=== PATIENT | male | born 1945 | race Caucasian/White ===

== ENCOUNTER → 2018-08-21 | Outpatient (CLI) | payer OTHER ==
--- NOTE | 2018-08-21 13:17 | US ---
EXAMINATION TYPE: US abdomen comp/pelvis limited DATE OF EXAM: 08/21/2018 COMPARISON: NONE CLINICAL HISTORY: R10.30 lower abdominal pain, unspecified. Pain, NPO, No surgeries. EXAM MEASUREMENTS: Liver Length: 15.5 cm Gallbladder Wall: 0.2 cm CHD: 0.9 cm Spleen: 9.9 cm Right Kidney: 9.7 x 4.8 x 5.9 cm Left Kidney: 10.3 x 5.1 x 5.5 cm Limited exam due to overlying bowel gas Pancreas: Obscured by bowel gas Liver: Increased attenuation and appears heterogenous Gallbladder: wnl CBD: Obscured by overlying bowel gas CHD: appears slightly dilated for patient age Spleen: wnl Right Kidney: wnl Left Kidney: wnl Upper IVC: Obscured by overlying bowel gas Abd Aorta: limited visualization, portions obscured by overlying bowel gas Bladder: distended, wnl Bilateral Jets Seen Area of pain scanned in left adnexa/groin region. Possible hernia. During valsalva, movement was se en. Suboptimal study as detailed above due to overlying bowel gas. IMPRESSION: 1. There is suspected fat-containing left inguinal hernia with suspicious tissue identified at area o f clinical concern left groin during scanning. This can be confirmed with pelvic CT if desired. Video clips cannot be saved at this institution to best evaluate. 2. Heterogeneous hyperechoic appearance of liver likely on basis of diffuse fatty infiltration, under lying felt cellular disease is not excluded. Correlate with liver lab values and clinically. 3. Mild extrahepatic biliary dilatation without intrahepatic biliary dilatation. Need to further inve stigate by ERCP or MRCP should be based on clinical and lab correlation.
== END ==
LOC: RADUSWWP 12:10
DX: K76.0 Fatty (change of) liver, not elsewhere classified (principal); K83.8 Other specified diseases of biliary tract
CPT/HCPCS: 76700; 76857

== ENCOUNTER → 2018-10-12 | Outpatient (CLI) | payer OTHER ==
--- NOTE | 2018-10-12 17:35 | MR ---
EXAMINATION TYPE: MR MRCP DATE OF EXAM: 10/12/2018 COMPARISON: Complete abdominal ultrasound August 21, 2018 HISTORY: Abnormal US of liver Standard multiplanar, multisequence MRI departmental protocol Multiplanar, multisequence images of the abdomen focusing on biliary system were acquired. Thin and t hick slice MRCP imaging is performed on MRI scanner. FINDINGS: LIVER/GB/PANCREAS/BILIARY SYSTEM: Liver is normal in size. There is diffuse signal dropout system wit h mild diffuse fatty infiltration. No worrisome solid or cystic intrahepatic masses are present. No intraluminal gallstones in the gallbladder are seen. No wall thickening is noted. Pancreas is normal in size. There are thin-walled cystic lesions along inferior aspect of the mid to distal body measuring up to 9 mm long axis coronal image 15. There is tubular shaped subcentimeter le quan proximal body posteriorly that may have communication with main pancreatic duct. Main pancreatic duct is nondilated. There is no suspicious intrahepatic biliary dilatation. Common hepatic duct measures up to 9 mm near josé antonio hepatis. There is gradual tapering towards ampulla without obstructing mass or calculus clearly seen. OTHER: Lung bases are clear. Cardiomegaly is noted. Subcentimeter splenule anterior to spleen is seen . No suspicious adrenal masses are noted. No hydronephrosis is present in either kidney. No suspiciou s bowel dilatation is seen. Scattered colonic diverticula are present. There are prominent but subcen timeter lymph nodes throughout the left-sided mesentery. No concerning abdominal fluid collection is identified. Osseous structures are intact. IMPRESSION: 1. Confirmation of mild extra hepatic biliary dilatation without intrahepatic biliary dilatation. Con firmation of mild diffuse fatty infiltration of liver. 2. Thin-walled subcentimeter cystic lesions throughout the pancreas, 3 distinct lesions are present. Differential includes pancreatic pseudocyst but cystic neoplasm cannot be excluded. At minimum MRI/MR CP imaging follow-up or monitoring in 6-12 months time is advised.
== END | disposition home or self-care (01) ==
LOC: RADMRIMAIN 14:54
PROVIDERS: ATTEND Internal Medicine Gastroenterology
DX: K76.0 Fatty (change of) liver, not elsewhere classified (principal); K86.2 Cyst of pancreas
CPT/HCPCS: 74181

== ENCOUNTER → 2020-02-07 | Outpatient (CLI) | payer OTHER ==
--- NOTE | 2020-02-07 14:49 | MR ---
EXAMINATION TYPE: MR cervical spine wo con DATE OF EXAM: 02/07/2020 COMPARISON: Cervical spine x-rays of 01/05/2014 HISTORY: Neck pain, BUE numbness x 3 mos TECHNIQUE: Multiplanar, multisequence images of the cervical spine were acquired. FINDINGS: There is multilevel degenerative disc disease of the cervical spine with multilevel disc de siccation. The vertebral body heights and alignment of the cervical spine are maintained. Bone marrow slightly heterogenous. There is mild hyperintensity that is amorphous measuring approximately 9 mm i n the cervical spine marked on sagittal T2 axial nonfat image 9 at the C6-C7 intervertebral disc spac e and upper aspect of the C7 vertebral body. There is no cord expansion in the cord appears slightly atrophic. C2-C3: There is a small central posterior disc osteophyte complex and minimal uncovertebral hypertrop hy as well as right-sided facet arthropathy creating minimal bilateral neural foraminal narrowing wit hout spinal canal stenosis. C3-C4: There is a central disc osteophyte complex, uncovertebral hypertrophy and facet arthropathy cr eating moderate left and [id number] right neural foraminal narrowing. No significant spinal can al stenosis. C4-C5: There is uncovertebral hypertrophy and facet arthropathy creating mild bilateral neural forami nal narrowing. A broad-based disc bulge slightly narrows the ventral subarachnoid space however no si gnificant spinal canal stenosis is seen. C5-C6: There is a central disc herniation and facet arthropathy with uncovertebral hypertrophy creati ng mild spinal canal stenosis and mild bilateral neural foraminal narrowing. C6-C7: There is a left paracentral disc herniation, uncovertebral hypertrophy and facet arthropathy c ontributing to moderate spinal canal stenosis, moderate to severe left neural foraminal narrowing and mild right neural foraminal narrowing. C7-T1: Minimal uncovertebral hypertrophy creating minimal right neural foraminal narrowing. Spinal ca nal and left neural foramen are patent. Possible cystic lesion of the left lobe near the thyroid seen on axial T2-weighted images only. CT or ultrasound of the neck are recommended for further evaluation. IMPRESSION: 1. Left paracentral disc herniation at C6-C7 contributing to moderate spinal canal stenosis, moderate to severe left neural foraminal narrowing and mild right neural foraminal narrowing. There is also a bnormal signal of the spinal cord at C6-C7. Given the patient's chronicity of symptoms for 3 months t his likely relates to myelomalacia. There is also no cord expansion to indicate acute cord edema. 2. Central disc herniation at C5-C6 with degenerative disc disease crating mild spinal canal stenosis . 3. Moderate degenerative disc disease of the cervical spine with variable degrees of neural foraminal narrowing detailed age level above. 4. Possible cystic lesion in the left thyroid gland. Directed ultrasound or CT neck are recommended f or further evaluation.
== END | disposition home or self-care (01) ==
LOC: RADMRIMAIN 10:06
DX: M50.222 Other cervical disc displacement at C5-C6 level (principal); M48.02 Spinal stenosis, cervical region; M50.322 Other cervical disc degeneration at C5-C6 level; Z88.8 Allergy status to other drugs, medicaments and biological substances
CPT/HCPCS: 72141

== ENCOUNTER → 2020-02-16 | Outpatient (CLI) | payer OTHER ==
--- NOTE | 2020-02-16 11:48 | US ---
EXAMINATION TYPE: US thyroid st tissue head/neck DATE OF EXAM: 02/16/2020 COMPARISON: CLINICAL HISTORY: R93.89 Abnormal findings on diagnostic imaging of. MRI showed cystic lesion on thyr oid GLAND SIZE: Right Lobe: 3.1 x 1.4 x 1.4 cm Overall Parenchyma: homogenous Left Lobe: 4.8 x 4.3 x 3.2 cm Overall Parenchyma: homogeneous Isthmus Thickness: 0.5 cm NODULES RIGHT: # of nodules measured on right: 1. 0.5 X 0.4 x 0.4 cm hypoechoic nodule at the lower pole with well-defined margins. This nodule i s wide as tall and shows no intranodular vascularity. Prior size: No prior LEFT: # of nodules measured on left: 1 1. 3.3 X 3.6 x 2.4 cm cystic nodule at the mid pole with well-defined margins. This nodule is wide r than tall and shows no intranodular vascularity. Prior size: no prior ISTHMUS: # of nodules measured in the isthmus: 1 1. 1.1 X 0.8 x 0.5 cm complex nodule at the right lateral pole with well-defined margins. This nod ule is wider than tall and shows no intranodular vascularity. Prior size: no prior Bilateral neck scanned, no evidence of lymphadenopathy. IMPRESSION: Nonspecific thyroid nodularity. The need to biopsy should be made on a clinical basis.
== END | disposition home or self-care (01) ==
LOC: RADUSWWP 10:44
DX: E04.1 Nontoxic single thyroid nodule (principal)
CPT/HCPCS: 76536

== ENCOUNTER → 2020-03-20 | Outpatient (CLI) | payer OTHER ==
--- NOTE | 2020-03-20 12:40 | MR ---
MRCP HISTORY: Disease of pancreas, K 86.89 Multiplanar multisequence imaging obtained through the abdomen, three-dimensional [id number] emerson nstructions performed through the biliary system. Correlation to prior MRCP 10/12/2018 Signal drop on out of phase imaging within the liver is consistent with hepatic steatosis. The liver shows no mass. Gallbladder is normal. The appearance of the pancreas is stable. No evident biliary dilation, no filling defect to suggest choledocholithiasis.. Lung bases are clear. No retroperitoneal adenopathy. Aorta shows normal caliber. Adrenal glands and kidneys are stable. Sp raymond is unremarkable. No bowel obstruction. Diverticular change again noted within the colon. Mild spinal curvature noted in the visualized spine . IMPRESSION: Stable exam.
== END | disposition home or self-care (01) ==
LOC: RADMRIMAIN 07:54
PROVIDERS: ATTEND Internal Medicine
DX: K86.89 Other specified diseases of pancreas (principal)
CPT/HCPCS: 74181

== ENCOUNTER → 2020-05-11 | Outpatient (CLI) | payer OTHER | END | disposition home or self-care (01) | LOC: LABWHC1 13:47 | PROVIDERS: ATTEND Internal Medicine Endocrinology, Diabetes & Metabolism | DX: E04.2 Nontoxic multinodular goiter (principal) | CPT/HCPCS: 36415; 84439; 84443 ==

== ENCOUNTER → 2020-11-20 | Outpatient (CLI) | payer OTHER ==
--- NOTE | 2020-11-20 16:29 | US ---
EXAMINATION TYPE: US thyroid st tissue head/neck DATE OF EXAM: 11/20/2020 COMPARISON: 02/16/2020 CLINICAL HISTORY: 75-year-old male E04.2 Multinodular goiter. Follow-up exam. TECHNIQUE: Multiple sonographic images of the thyroid gland are obtained. FINDINGS: GLAND SIZE: Right Lobe: 3.3 x 1.3 x 1.5 cm Overall Parenchyma: heterogenous Left Lobe: 4.8 x 2.5 x 3.7 cm Overall Parenchyma: heterogeneous Isthmus Thickness: 0.9 cm NODULES RIGHT: # of nodules measured on right: 1 1. 0.4 X 0.6 x 0.7 cm solid or almost completely solid, hypoechoic nodule, which is wider than tall , with smooth margins, without echogenic foci. Prior size: 0.5 x 0.4 x 0.4 cm LEFT: # of nodules measured on left: 1 1. 2.7 X 2.9 x 2.6 cm primarily cystic nodule in the lower pole, which is wider than tall, with smo oth margins, with echogenic foci. Prior size: 3.3 x 3.6 x 2.4 cm ISTHMUS: # of nodules measured in the isthmus: 1 1. 1.2 X 0.9 x 0.7 cm cystic or almost completely cystic, towards the thyroid isthmus which is wider than tall, with smooth margins, without echogenic foci. Prior size: 1.1 x 0.8 x 0.5 cm Bilateral neck scanned, no evidence of lymphadenopathy. IMPRESSION: 1. A small 7 mm solid nodule on the right is slightly larger compared to 5 mm previously. 2. Mostly cystic nodules measuring 2.9 and 1.2 cm on the left either stable or smaller (versus 3.6 an d 1.1 cm, previously respectively).
== END | disposition home or self-care (01) ==
LOC: RADUSWWP 13:59
PROVIDERS: ATTEND Internal Medicine Endocrinology, Diabetes & Metabolism
DX: E04.2 Nontoxic multinodular goiter (principal)
CPT/HCPCS: 76536

== ENCOUNTER → 2020-12-04 | Outpatient (CLI) | payer OTHER ==
--- NOTE | 2020-12-04 17:38 | MR ---
EXAMINATION TYPE: MR cervical spine wo con DATE OF EXAM: 12/04/2020 COMPARISON: MR cervical spine 02/07/2020 HISTORY: M 48.062, and neck pain. TECHNIQUE: Multiplanar, multisequence images of the cervical spine were acquired. C2-C3: No evidence for degenerative disc disease. No disc bulge/herniation or protrusion. No Canal stenosis. Foramina are patent bilaterally. C3-C4: There is some left-sided foraminal encroachment due to uncovertebral joint hypertrophy and fac et arthropathy, no evident disc herniation or significant spinal stenosis. C4-C5: Posterior broad-based disc bulge causes minimal anterior mass effect on the thecal sac. Some r ight-sided foraminal encroachment is present due to uncovertebral joint hypertrophy facet arthropathy . No significant spinal stenosis. C5-C6: Posterior extension endplate disc complex results in anterior mass effect on the thecal sac, m oderate central canal stenosis, there is bilateral foraminal encroachment due to uncovertebral joint hypertrophy, facet arthropathy. C6-C7: Left-sided foraminal encroachment is present due to uncovertebral joint hypertrophy and facet arthropathy, circumferential posterior extension endplate disc complex causes anterior mass effect on the thecal sac, mild to moderate central stenosis. C7-T1: No evidence for degenerative disc disease. No disc bulge/herniation or protrusion. No Canal stenosis. Foramina are patent bilaterally. Cervical segments are intact. There is stable alignment, there may be spinal curvature. Cervical sp inal cord is of normal signal. Craniovertebral junction relationships are within normal limits. The re is loss of disc height signal greatest at C5-6, C6-7 with associated spondylosis, endplate discoge giancarlo marrow signal change. Minimal interstitial is grade 1 C7-T1. IMPRESSION: Degenerative disc disease with spinal stenosis, facet arthropathy, foraminal encroachment as describe eric
== END ==
LOC: RADMRIMAIN 14:29
PROVIDERS: ATTEND Neurological Surgery
DX: M48.02 Spinal stenosis, cervical region (principal); M47.812 Spondylosis without myelopathy or radiculopathy, cervical region; M50.221 Other cervical disc displacement at C4-C5 level
CPT/HCPCS: 72141

== ENCOUNTER → 2020-12-11 | Outpatient (CLI) | payer OTHER | END | disposition home or self-care (01) | LOC: LABPAT 12:14 | PROVIDERS: ATTEND Orthopaedic Surgery | DX: Z01.812 Encounter for preprocedural laboratory examination (principal) | CPT/HCPCS: 87070 ==

== ENCOUNTER 2021-02-09 13:11 | Emergency (ER) | payer OTHER ==
[2021-02-09 13:17] VITALS: RESP 18
[2021-02-09 14:05] LABS: Basophils # (A) 0.1 k/uL (0-0.2); Basophils % (A) 1 %; Eosinophils # (A) 0.3 k/uL (0-0.7); Eosinophils % (A) 4 %; HCT 45.5 % (39.0-53.0); HGB 15.2 gm/dL (13.0-17.5); Lymphocytes # (A) 1.7 k/uL (1.0-4.8); Lymphocytes % (A) 22 %; MCH 31.1 pg (25.0-35.0); MCHC 33.4 g/dL (31.0-37.0); MCV 93.2 fL (80.0-100.0); Mean Platelet Volume 7.4; Monocytes # (A) 0.5 k/uL (0-1.0); Monocytes % (A) 6 %; Neutrophils % (A) 65 %; Platelet Count 245 k/uL (150-450); RBC 4.88 m/uL (4.30-5.90); RDW 13.5 % (11.5-15.5); WBC 7.7 k/uL (3.8-10.6)
[2021-02-09 14:13] LABS: Albumin 4.4 g/dL (3.5-5.0); Calcium 9.4 mg/dL (8.4-10.2); Magnesium 1.7 mg/dL (1.6-2.3); Potassium 5.6 mmol/L (3.5-5.1); Total Bilirubin 0.7 mg/dL (0.2-1.3); Total Protein 7.1 g/dL (6.3-8.2)
[2021-02-09 14:19] LABS: D-Dimer 0.5 mg/L FEU (<0.60); INR 0.9 (<1.2); Partial Thromboplastin Time 24.5 sec (22.0-30.0); Prothrombin Time 10.1 sec (9.0-12.0)
--- NOTE | 2021-02-09 14:26 | XR ---
EXAMINATION TYPE: XR chest 2V DATE OF EXAM: 02/09/2021 COMPARISON: 09/07/2014 HISTORY: Chest pain TECHNIQUE: FINDINGS: There is no heart failure. There is slight blunting left costophrenic angle. There are no h ilar masses. There is no evidence of mediastinal adenopathy. Heart size is fairly normal. Bony thorax is intact. IMPRESSION: There is some mild pleural reaction at the left lung base that is new compared to old exa m. No heart failure seen.
--- NOTE | 2021-02-09 14:39 | ED ---
General Adult HPI - General Chief complaint: Upper Respiratory Infection Stated complaint: Chest pain Time Seen by Provider: 02/09/21 13:19 Source: patient, RN notes reviewed, old records reviewed Mode of arrival: ambulatory - History of Present Illness Initial comments: 75-year-old male presenting with 3 days of left-sided chest pain worse with cough. Patient states he's had a mild productive cough with clear sputum. No fever. No central radiating chest pain. Patient denies lower extremity pain or swelling. He denies known contact with coronavirus. Pain is mild. Does not travel. - Related Data Home Medications Medication Instructions Recorded Confirmed Acetaminophen-Codeine 300-30mg 1 tab PO BID PRN 02/09/21 02/09/21 [Tylenol w/codeine #3] Aspirin EC [Ecotrin Low Dose] 81 mg PO DAILY 02/09/21 02/09/21 Atorvastatin [Lipitor] 80 mg PO HS 02/09/21 02/09/21 Citalopram Hydrobromide [CeleXA] 40 mg PO DAILY 02/09/21 02/09/21 Donepezil HCl [Aricept] 5 mg PO DAILY 02/09/21 02/09/21 Empagliflozin [Jardiance] 10 mg PO DAILY 02/09/21 02/09/21 Gabapentin [Neurontin] 300 mg PO TID 02/09/21 02/09/21 Insulin Aspart [NovoLOG Flexpen] 10 - 15 units SQ AC-SUPPER 02/09/21 02/09/21 Insulin Glargine [Lantus] 60 unit SQ BID 02/09/21 02/09/21 Losartan Potassium 50 mg PO DAILY 02/09/21 02/09/21 Tamsulosin HCl [Flomax] 0.4 mg PO DAILY 02/09/21 02/09/21 amLODIPine [Norvasc] 5 mg PO DAILY 02/09/21 02/09/21 glipiZIDE [Glucotrol] 10 mg PO AC-SUPPER 02/09/21 02/09/21 glipiZIDE [Glucotrol] 15 mg PO AC-BID@0900,2100 02/09/21 02/09/21 Allergies Allergy/AdvReac Type Severity Reaction Status Date / Time prochlorperazine AdvReac ANXIETY Verified 02/09/21 14:13 [From Compazine] Review of Systems ROS Statement: Those systems with pertinent positive or pertinent negative responses have been documented in the HPI. ROS Other: All systems not noted in ROS Statement are negative. Past Medical History Past Medical History: Diabetes Mellitus History of Any Multi-Drug Resistant Organisms: None Reported Past Surgical History: No Surgical Hx Reported Past Psychological History: No Psychological Hx Reported Smoking Status: Never smoker Past Alcohol Use History: None Reported Past Drug Use History: None Reported General Exam General appearance: alert, in no apparent distress Head exam: Present: atraumatic, normocephalic Eye exam: Present: normal appearance, PERRL ENT exam: Present: normal exam, mucous membranes dry Neck exam: Present: normal inspection Respiratory exam: Present: normal lung sounds bilaterally. Absent: respiratory distress, wheezes, decreased breath sounds Cardiovascular Exam: Present: regular rate, normal rhythm GI/Abdominal exam: Present: soft. Absent: distended, tenderness, guarding Extremities exam: Present: normal inspection, normal capillary refill. Absent: pedal edema, calf tenderness Neurological exam: Present: alert, oriented X3, CN II-XII intact. Absent: motor sensory deficit Psychiatric exam: Present: normal affect, normal mood Skin exam: Present: warm, dry, intact. Absent: cyanosis, diaphoretic Course Vital Signs 02/09/21 13:12 Temperature 97.4 F L Pulse Rate 76 Respiratory 18 Rate Blood Pressure 147/89 O2 Sat by Pulse 97 Oximetry EKG Findings - EKG Comments: EKG Findings:: EKG: Normal sinus rhythm, rate 68, NH interval 154, QRS duration 76, QTC [address] segment elevation Medical Decision Making - Medical Decision Making 75-year-old male with left-sided lateral chest pain worse with cough. Patient's lungs are clear on exam. He is afebrile stable vitals. He has no typical chest pain. His EKG is sinus without ST segment elevation. He has normal CBC, CMP showing a mild hyperkalemia and mild hyperglycemia. Troponin negative, d-dimer negative. X-ray negative for pneumothorax, showing a left pleural reaction. No other acute findings. Patient will monitor for worsening symptoms, fever, dyspnea return parameters were discussed, will follow with his primary care physician. - Lab Data Result diagrams: 02/09/21 13:53 02/09/21 13:53 Lab Results 02/09/21 02/09/21 02/09/21 Range/Units 13:53 13:53 13:53 WBC 7.7 (3.8-10.6) k/uL RBC 4.88 (4.30-5.90) m/uL Hgb 15.2 (13.0-17.5) gm/dL Hct 45.5 (39.0-53.0) % MCV 93.2 (80.0-100.0) fL MCH 31.1 (25.0-35.0) pg MCHC 33.4 (31.0-37.0) g/dL RDW 13.5 (11.5-15.5) % Plt Count 245 (150-450) k/uL MPV 7.4 Neutrophils % 65 % Lymphocytes % 22 % Monocytes % 6 % Eosinophils % 4 % Basophils % 1 % Neutrophils # 5.0 (1.3-7.7) k/uL Lymphocytes # 1.7 (1.0-4.8) k/uL Monocytes # 0.5 (0-1.0) k/uL Eosinophils # 0.3 (0-0.7) k/uL Basophils # 0.1 (0-0.2) k/uL PT 10.1 (9.0-12.0) sec INR 0.9 (<1.2) APTT 24.5 (22.0-30.0) sec D-Dimer 0.50 (<0.60) mg/L FEU Sodium 136 L (137-145) mmol/L Potassium 5.6 H (3.5-5.1) mmol/L Chloride 103 (98-107) mmol/L Carbon Dioxide 23 (22-30) mmol/L Anion Gap 10 mmol/L BUN 25 H (9-20) mg/dL Creatinine 1.23 (0.66-1.25) mg/dL Est GFR (CKD-EPI)AfAm 67 (>60 ml/min/1.73 sqM) Est GFR (CKD-EPI)NonAf 58 (>60 ml/min/1.73 sqM) Glucose 247 H (74-99) mg/dL Calcium 9.4 (8.4-10.2) mg/dL Magnesium 1.7 (1.6-2.3) mg/dL Total Bilirubin 0.7 (0.2-1.3) mg/dL AST 29 (17-59) U/L ALT 33 (4-49) U/L Alkaline Phosphatase 96 (38-126) U/L Troponin I (0.000-0.034) ng/mL Total Protein 7.1 (6.3-8.2) g/dL Albumin 4.4 (3.5-5.0) g/dL Influenza Type A (PCR) (Not Detectd) Influenza Type B (PCR) (Not Detectd) RSV (PCR) (Not Detectd) SARS-CoV-2 (PCR) (Not Detectd) 02/09/21 02/09/21 Range/Units 13:53 13:53 WBC (3.8-10.6) k/uL RBC (4.30-5.90) m/uL Hgb (13.0-17.5) gm/dL Hct (39.0-53.0) % MCV (80.0-100.0) fL MCH (25.0-35.0) pg MCHC (31.0-37.0) g/dL RDW (11.5-15.5) % Plt Count (150-450) k/uL MPV Neutrophils % % Lymphocytes % % Monocytes % % Eosinophils % % Basophils % % Neutrophils # (1.3-7.7) k/uL Lymphocytes # (1.0-4.8) k/uL Monocytes # (0-1.0) k/uL Eosinophils # (0-0.7) k/uL Basophils # (0-0.2) k/uL PT (9.0-12.0) sec INR (<1.2) APTT (22.0-30.0) sec D-Dimer (<0.60) mg/L FEU Sodium (137-145) mmol/L Potassium (3.5-5.1) mmol/L Chloride (98-107) mmol/L Carbon Dioxide (22-30) mmol/L Anion Gap mmol/L BUN (9-20) mg/dL Creatinine (0.66-1.25) mg/dL Est GFR (CKD-EPI)AfAm (>60 ml/min/1.73 sqM) Est GFR (CKD-EPI)NonAf (>60 ml/min/1.73 sqM) Glucose (74-99) mg/dL Calcium (8.4-10.2) mg/dL Magnesium (1.6-2.3) mg/dL Total Bilirubin (0.2-1.3) mg/dL AST (17-59) U/L ALT (4-49) U/L Alkaline Phosphatase (38-126) U/L Troponin I <0.012 (0.000-0.034) ng/mL Total Protein (6.3-8.2) g/dL Albumin (3.5-5.0) g/dL Influenza Type A (PCR) Not Detected (Not Detectd) Influenza Type B (PCR) Not Detected (Not Detectd) RSV (PCR) Not Detected (Not Detectd) SARS-CoV-2 (PCR) Not Detected (Not Detectd) Disposition Clinical Impression: Atypical chest pain Disposition: HOME SELF-CARE Condition: Good Instructions (If sedation given, give patient instructions): Upper Respiratory Infection (ED), Chest Pain (ED) Is patient prescribed a controlled substance at d/c from ED?: No Referrals: [facility],Clinic [Primary Care Provider] - 1-2 days Time of Disposition: 15:20
[2021-02-09] MEDS ORDERED: SODIUM CHLORIDE 0.9% 500 ML 500 ML IV ONE (14:52)
[2021-02-09 15:37] VITALS: BP 148/83; PULSE 66; TEMP 98.1
== END 2021-02-09 15:35 | disposition home or self-care (01) ==
LOC: EC 13:11
DX: R07.89 Other chest pain (principal); E11.9 Type 2 diabetes mellitus without complications; Z79.4 Long term (current) use of insulin; Z79.82 Long term (current) use of aspirin
CPT/HCPCS: 36415; 71046; 80053; 83735; 84484; 85025; 85379; 85610; 85730; 87636; 93005; 99285

== ENCOUNTER → 2022-02-15 | Outpatient (CLI) | payer OTHER ==
--- NOTE | 2022-02-15 12:56 | MR ---
EXAMINATION TYPE: MR cervical spine wo con DATE OF EXAM: 02/15/2022 12:48 PM COMPARISON: 12/04/2020 HISTORY: Osseous and sublux stenosis of cervical region Multiplanar MultiSpin echo imaging of the cervical spine was performed. Comparison: none C2-C3: No evidence for degenerative disc disease. No disc bulge/herniation or protrusion. No Canal stenosis. Foramina are patent bilaterally. C3-C4: No evidence for degenerative disc disease. No disc bulge/herniation or protrusion. No Canal stenosis. Foramina are patent bilaterally. C4-C5: No evidence for degenerative disc disease. No disc bulge/herniation or protrusion. No Canal stenosis. Foramina are patent bilaterally. C5-C6: Moderate disc desiccation. Circumferential disc bulge greatest posteriorly where disc herniati on is difficult to exclude. Effacement ventral thecal sac with ventral cord contact moderate central stenosis. No evidence for myelopathy. Degenerative change of the cervical apophyseal joints resulting in bilateral foraminal encroachment. Large ventral spur C6-C7: Moderate disc desiccation. Circumferential disc bulge greatest posteriorly where disc herniati on is difficult to exclude. Effacement ventral thecal sac with ventral cord contact moderate central stenosis. No evidence for myelopathy. Degenerative change of the cervical apophyseal joints resulting in bilateral foraminal encroachment. Large ventral spur C7-T1: No evidence for degenerative disc disease. No disc bulge/herniation or protrusion. No Canal stenosis. Foramina are patent bilaterally. Cervical segments are intact. There is normal alignment. Cervical spinal cord is of normal signal. Craniovertebral junction relationships are within normal limits. IMPRESSION: 1. Generative disc disease with central stenosis at C5-6 and C6-7 as well as bilateral neural foramin al encroachment.
== END | disposition home or self-care (01) ==
LOC: RADMRIMAIN 11:50
PROVIDERS: ATTEND Physician Assistant
DX: M99.61 Osseous and subluxation stenosis of intervertebral foramina of cervical region (principal); M50.322 Other cervical disc degeneration at C5-C6 level; M50.323 Other cervical disc degeneration at C6-C7 level
CPT/HCPCS: 72141

== ENCOUNTER 2022-09-08 15:33 | Emergency (ER) | payer OTHER ==
[2022-09-08 15:58] VITALS: TEMP 98
[2022-09-08] MEDS ORDERED: predniSONE 20 MG TAB PO STA (19:42)
[2022-09-08] MEDS ORDERED: KETOROLAC 15 MG/ML 1 ML VIAL IM STA (19:42)
--- NOTE | 2022-09-08 19:44 | ED ---
General Adult HPI - General Chief complaint: Recheck/Abnormal Lab/Rx Stated complaint: Right Sided Numbness,Poss Stroke Time Seen by Provider: 09/08/22 19:21 Source: patient Mode of arrival: ambulatory Limitations: no limitations - History of Present Illness Initial comments: This is a 77-year-old male with a past medical history including hypertension p resents emergency department for right leg pain. The patient stated that he has had this right leg pain for 4 months and stated that he has been seeing a chiropractor on and off for the last 4 months for this. The patient stated he did not have any acute pain or tenderness but stated that it is a tingling-like sensation down his right leg. The patient stated that he has not seen a physician for this and for months but [facility] The patient denied any pain in his back or any numbness or tingling currently. The patient has not tried any other medications other than Tylenol. The patient denied any urinary or fecal incontinence. The patient was resting in bed comfortably and was in bleeding in the emergency department without any acute assistance. - Related Data Home Medications Medication Instructions Recorded Confirmed Acetaminophen-Codeine 300-30mg 1 tab PO BID PRN 02/09/21 02/09/21 [Tylenol w/codeine #3] Aspirin EC [Ecotrin Low Dose] 81 mg PO DAILY 02/09/21 02/09/21 Atorvastatin [Lipitor] 80 mg PO HS 02/09/21 02/09/21 Citalopram Hydrobromide [CeleXA] 40 mg PO DAILY 02/09/21 02/09/21 Donepezil HCl [Aricept] 5 mg PO DAILY 02/09/21 02/09/21 Empagliflozin [Jardiance] 10 mg PO DAILY 02/09/21 02/09/21 Gabapentin [Neurontin] 300 mg PO TID 02/09/21 02/09/21 Insulin Aspart [NovoLOG Flexpen] 10 - 15 units SQ AC-SUPPER 02/09/21 02/09/21 Insulin Glargine [Lantus] 60 unit SQ BID 02/09/21 02/09/21 Losartan Potassium 50 mg PO DAILY 02/09/21 02/09/21 Tamsulosin HCl [Flomax] 0.4 mg PO DAILY 02/09/21 02/09/21 amLODIPine [Norvasc] 5 mg PO DAILY 02/09/21 02/09/21 glipiZIDE [Glucotrol] 10 mg PO AC-SUPPER 02/09/21 02/09/21 glipiZIDE [Glucotrol] 15 mg PO AC-BID@0900,2100 02/09/21 02/09/21 Previous Rx's Medication Instructions Recorded predniSONE [Deltasone] 40 mg PO DAILY #8 tab 09/08/22 Allergies Allergy/AdvReac Type Severity Reaction Status Date / Time prochlorperazine AdvReac ANXIETY Verified 09/08/22 15:58 [From Compazine] Review of Systems ROS Statement: Those systems with pertinent positive or pertinent negative responses have been documented in the HPI. ROS Other: All systems not noted in ROS Statement are negative. Past Medical History Past Medical History: Diabetes Mellitus, Hypertension Additional Past Medical History / Comment(s): diverticulitis History of Any Multi-Drug Resistant Organisms: None Reported Past Surgical History: Hernia Repair Past Psychological History: No Psychological Hx Reported Smoking Status: Former smoker Past Alcohol Use History: None Reported Past Drug Use History: None Reported General Exam Limitations: no limitations General appearance: alert, in no apparent distress Head exam: Present: atraumatic, normocephalic Eye exam: Present: normal appearance, PERRL Pupils: Present: normal accommodation ENT exam: Present: normal exam, normal oropharynx, mucous membranes moist Neck exam: Present: normal inspection, full ROM Respiratory exam: Present: normal lung sounds bilaterally Cardiovascular Exam: Present: regular rate, normal rhythm, normal heart sounds GI/Abdominal exam: Present: soft, normal bowel sounds Rectal exam: Present: deferred Extremities exam: Present: normal inspection, full ROM Back exam: Present: normal inspection, full ROM Neurological exam: Present: alert, oriented X3, CN II-XII intact Psychiatric exam: Present: normal affect, normal mood Skin exam: Present: warm, dry Course Vital Signs 09/08/22 09/08/22 15:56 20:04 Temperature 98 F Pulse Rate 69 77 Respiratory 20 18 Rate Blood Pressure 133/71 141/83 O2 Sat by Pulse 98 99 Oximetry Medical Decision Making - Medical Decision Making The patient was seen and evaluated emergency department. Physical exam, the patient was resting in bed without any acute distress. On evaluation, the patient did not have any acute tenderness noted. The patient stated "it feels deeper in my leg" and there was no imaging that was needed at this time. The patient was given a dose of Toradol as well as a dose of prednisone in the emergency department. The patient was also given a prescription for the remaining 4 days of prednisone to be taken at home. The patient was advised to follow-up with his primary care physician and follow up with his appointment with the MD on Friday for further workup as an outpatient. The patient was told that because of the duration of the symptoms being 4 months, there was no acute injury likely causing this. The patient was able to move around the bed and a bili in the emergency department without any acute assistance and was stable for discharge. The patient was understanding of these instructions and all his questions were answered. The patient was discharged home in stable condition with his . Disposition Clinical Impression: Leg pain Disposition: HOME SELF-CARE Condition: Stable Instructions (If sedation given, give patient instructions): Leg Pain (ED) Prescriptions: predniSONE [Deltasone] 40 mg PO DAILY #8 tab Is patient prescribed a controlled substance at d/c from ED?: No Referrals: [facility],Clinic [Primary Care Provider] - 1-2 days Time of Disposition: 19:40
[2022-09-08 20:05] VITALS: BP 141/83; PULSE 77; RESP 18
== END 2022-09-08 20:10 | disposition home or self-care (01) ==
LOC: EC 15:33
DX: R20.2 Paresthesia of skin (principal); M79.604 Pain in right leg; E11.9 Type 2 diabetes mellitus without complications; I10 Essential (primary) hypertension; Z87.891 Personal history of nicotine dependence; Z88.8 Allergy status to other drugs, medicaments and biological substances; Z79.82 Long term (current) use of aspirin; Z79.4 Long term (current) use of insulin; Z79.899 Other long term (current) drug therapy
CPT/HCPCS: 99283; 96372; J1885; J7512

== ENCOUNTER 2025-03-23 08:15 | Emergency (ER) | payer OTHER ==
[2025-03-23 08:36] LABS: Glucose,Whole Blood 130 mg/dL (70-110)
[2025-03-23 09:14] LABS: Basophils # (A) 0.05 10*3/uL (0.00-0.10); Basophils % (A) 0.6 %; Eosinophils # (A) 0.12 10*3/uL (0.04-0.35); Eosinophils % (A) 1.5 %; HCT 42.4 % (39.6-50.0); HGB 14.2 g/dL (13.0-17.0); Lymphocytes # (A) 1.37 10*3/uL (0.90-5.00); Lymphocytes % (A) 17.4 %; MCH 30.9 pg (27.0-32.0); MCHC 33.5 g/dL (32.0-37.0); MCV 92.4 fL (80.0-97.0); Monocytes # (A) 0.77 10*3/uL (0.20-1.00); Monocytes % (A) 9.8 %; Neutrophils # (A) 5.51 10*3/uL (1.80-7.70); Neutrophils % (A) 70.2 %; Platelet Count 205 10*3/uL (140-440); RBC 4.59 10*6/uL (4.40-5.60); RDW 13.2 % (11.5-14.5); WBC 7.86 10*3/uL (4.50-10.00)
[2025-03-23 09:26] LABS: ALT 29 U/L (4-49); AST 25 U/L (17-59); African American GFR (CKD) 60 (>60 ml/min/1.73 sqM); Alkaline Phosphatase 91 U/L (38-126); Anion Gap 8 mmol/L; Blood Urea Nitrogen 19 mg/dL (9-20); Calcium 9.4 mg/dL (8.4-10.2); Carbon Dioxide 26 mmol/L (22-30); Chloride 107 mmol/L (98-107); Glucose 109 mg/dL (74-99); Non-African American GFR(CKD) 52 (>60 ml/min/1.73 sqM); Potassium 3.4 mmol/L (3.5-5.1); Sodium 141 mmol/L (137-145); Total Bilirubin 0.7 mg/dL (0.2-1.3); Total Protein 6.5 g/dL (6.3-8.2)
[2025-03-23 11:04] LABS: Appearance,Urine Clear (Clear); Bilirubin,Urine Negative (Negative); Blood,Urine Negative (Negative); Color,Urine Light Yellow; Glucose,Urine (UA) 4+ (Negative); Ketones,Urine Negative (Negative); Leukocyte Esterase,Urine Negative (Negative); Mucus,Urine Rare /hpf; Nitrite,Urine Negative (Negative); PH, Urine 5.5 (5.0-8.0); Protein,Urine 2+ (Negative); RBC,Urine <1 /hpf (0-5); Specific Gravity,Urine 1.025 (1.001-1.035); Urobilinogen,Urine <2.0 mg/dL (<2.0); WBC,Urine <1 /hpf (0-5)
--- NOTE | 2025-03-23 11:13 | ED ---
Weakness HPI - General Chief complaint: Weakness Stated complaint: AMS Time Seen by Provider: 03/23/25 08:22 Source: patient, EMS Mode of arrival: EMS Limitations: no limitations - History of Present Illness Initial comments: CAD 79-year-old male presents to the emergency department after he had an episode of altered mental status. is at bedside and helps provide history. States that the patient is in charge of taking his own insulin. Occasionally after the patient takes his insulin he does bottom out. has a glucose monitor attached to a phone. She had gone to work this morning and noted that the patient's blood sugar was critically low. She called him at home and told him to call 911. He had a glucose of 66. He was given oral glucose by EMS and had improvement in his mentation. Presents to me reporting no symptoms. He denies taking any excess of his insulin. Reports to taking 30 units of his rapid acting insulin this morning. He also takes Lantus twice daily. He did not take his Lantus this morning. has his glucose monitor with him which demonstrates that every time the patient takes 30 units of his short acting insulin that he goes hypoglycemic. Patient denies any recent illnesses. No recent medication changes. No other alleviating, precipitating or modifying factors - Related Data Home Medications Medication Instructions Recorded Confirmed Acetaminophen-Codeine 300-30mg 1 tab PO BID PRN 02/09/21 02/09/21 [Tylenol w/codeine #3] Aspirin EC [Ecotrin Low Dose] 81 mg PO DAILY 02/09/21 02/09/21 Atorvastatin [Lipitor] 80 mg PO HS 02/09/21 02/09/21 Citalopram Hydrobromide [CeleXA] 40 mg PO DAILY 02/09/21 02/09/21 Donepezil HCl [Aricept] 5 mg PO DAILY 02/09/21 02/09/21 Empagliflozin [Jardiance] 10 mg PO DAILY 02/09/21 02/09/21 Gabapentin [Neurontin] 300 mg PO TID 02/09/21 02/09/21 Insulin Aspart [NovoLOG Flexpen] 10 - 15 units SQ AC-SUPPER 02/09/21 02/09/21 Insulin Glargine (Lantus) [Lantus] 60 unit SQ BID 02/09/21 02/09/21 Losartan Potassium 50 mg PO DAILY 02/09/21 02/09/21 Tamsulosin HCl [Flomax] 0.4 mg PO DAILY 02/09/21 02/09/21 amLODIPine [Norvasc] 5 mg PO DAILY 02/09/21 02/09/21 glipiZIDE [Glucotrol] 10 mg PO AC-SUPPER 02/09/21 02/09/21 glipiZIDE [Glucotrol] 15 mg PO AC-BID@0900,2100 02/09/21 02/09/21 Previous Rx's Medication Instructions Recorded predniSONE [Deltasone] 40 mg PO DAILY #8 tab 09/08/22 Allergies Allergy/AdvReac Type Severity Reaction Status Date / Time prochlorperazine AdvReac ANXIETY Verified 03/23/25 08:30 [From Compazine] Review of Systems ROS Statement: Those systems with pertinent positive or pertinent negative responses have been documented in the HPI. ROS Other: All systems not noted in ROS Statement are negative. Past Medical History Past Medical History: Diabetes Mellitus, Hypertension Additional Past Medical History / Comment(s): diverticulitis History of Any Multi-Drug Resistant Organisms: None Reported Past Surgical History: Hernia Repair Past Psychological History: No Psychological Hx Reported Smoking Status: Former smoker Past Alcohol Use History: None Reported Past Drug Use History: None Reported General Exam Limitations: no limitations General appearance: alert, in no apparent distress Head exam: Present: atraumatic, normocephalic, normal inspection Eye exam: Present: normal appearance, PERRL, EOMI. Absent: scleral icterus, conjunctival injection, periorbital swelling ENT exam: Present: normal exam, mucous membranes moist Neck exam: Present: normal inspection. Absent: tenderness, meningismus, lymphadenopathy Respiratory exam: Present: normal lung sounds bilaterally. Absent: respiratory distress, wheezes, rales, rhonchi, stridor Cardiovascular Exam: Present: regular rate, normal rhythm, normal heart sounds. Absent: systolic murmur, diastolic murmur, rubs, gallop, clicks GI/Abdominal exam: Present: soft, normal bowel sounds. Absent: distended, tenderness, guarding, rebound, rigid Extremities exam: Present: normal inspection, full ROM, normal capillary refill. Absent: tenderness, pedal edema, joint swelling, calf tenderness Back exam: Present: normal inspection Neurological exam: Present: alert, oriented X3, CN II-XII intact Psychiatric exam: Present: normal affect, normal mood Skin exam: Present: warm, dry, intact, normal color. Absent: rash Course Vital Signs 03/23/25 03/23/25 08:23 11:30 Temperature 97.6 F 97.8 F Pulse Rate 55 L 68 Respiratory 17 16 Rate Blood Pressure 152/80 123/79 O2 Sat by Pulse 97 98 Oximetry Medical Decision Making - Medical Decision Making Was pt. sent in by a medical professional or institution (, PA, INCLINOMETER TESTER, urgent care, hospital, or [facility]...) When possible be specific @ -No Did you speak to anyone other than the patient for history (EMS, parent, family, police, friend...)? What history was obtained from this source @ -I spoke with and EMS for history Did you review nursing and triage notes (agree or disagree)? Why? @ -I reviewed and agree with nursing and triage notes Were old charts reviewed (outside hosp., previous admission, EMS record, old EKG, old radiological studies, urgent care reports/EKG's, [facility] records)? Report findings @ -No old charts were reviewed Differential Diagnosis (chest pain, altered mental status, abdominal pain women, abdominal pain men, vaginal bleeding, weakness, fever, dyspnea, syncope, headache, dizziness, GI bleed, back pain, seizure, CVA, palpatations, mental health, musculoskeletal)? @ -Differential Altered Mental Status: Hypoglycemia, DKA, hypercapnia, ETOH, overdose, CO poisoning, trauma, myxedema coma, HTN encephalopathy, infection, encephalitis, psychosis, intercranial hemorrhage, hepatic encephalopathy, meningitis, CVA, this is not meant to be an all-inclusive list EKG interpreted by me (3pts min.). @ -Yes and demonstrates sinus bradycardia with a rate of 50. AK interval 209. QRS 93. QTc of 418. No acute ST segment elevations or depressions X-rays interpreted by me (1pt min.). @ -None done CT interpreted by me (1pt min.). @ -None done U/S interpreted by me (1pt. min.). @ -None done What testing was considered but not performed or refused? (CT, X-rays, U/S, labs)? Why? @ -CT brain however patient is no longer confused upon arrival to the ER What meds were considered but not given or refused? Why? @ -None Did you discuss the management of the patient with other professionals (professionals i.e. , PA, INCLINOMETER TESTER, lab, RT, psych nurse, web content & social media manager, gas fitter helper, teacher, mail officer, family service caseworker)? Give summary @ -No Was smoking cessation discussed for >3mins.? @ -No Was critical care preformed (if so, how long)? @ -No Were there social determinants of health that impacted care today? How? (Homelessness, low income, unemployed, alcoholism, drug addiction, transportation, low edu. Level, literacy, decrease access to med. care, care home, rehab)? @ -No Was there de-escalation of care discussed even if they declined (Discuss DNR or withdrawal of care, Hospice)? DNR status @ -No What co-morbidities impacted this encounter? (DM, HTN, Smoking, COPD, CAD, Cancer, CVA, ARF, Chemo, Hep., AIDS, mental health diagnosis, sleep apnea, morb id obesity)? @ -Diabetes mellitus Was patient admitted / discharged? Hospital course, mention meds given and route, prescriptions, significant lab abnormalities, going to OR and other pertinent info. @ -Upon arrival patient seen and evaluated in bed 23. Thorough history and physical exam was performed. Patient is back to his baseline at this time. I did complete laboratory studies which demonstrate no acute abnormalities. Urinalysis is negative. Results are discussed with the patient and his . I recommended that they cut back down to 20 units of insulin with his meals as the patient does go hypoglycemic with each dose of rapid acting. Patient will follow-up with his primary care doctor and notify them that we did decrease his amount of insulin due to hypoglycemic episodes. was agreeable to this. He is to return for any new or worsening symptoms. Patient discharged in stable condition Undiagnosed new problem with uncertain prognosis? @ -No Drug Therapy requiring intensive monitoring for toxicity (Heparin, Nitro, Insulin, Cardizem)? @ -No Were any procedures done? @ -No Diagnosis/symptom? @ -Acute encephalopathy, acute hypoglycemia, history of diabetes mellitus Acute, or Chronic, or Acute on Chronic? @ -Acute Uncomplicated (without systemic symptoms) or Complicated (systemic symptoms)? @ -Complicated Side effects of treatment? @ -No Exacerbation, Progression, or Severe Exacerbation? @ -No Poses a threat to life or bodily function? How? (Chest pain, [place], PR, pneumonia, PE, COPD, DKA, ARF, appy, cholecystitis, CVA, Diverticulitis, Homicidal, Suicida l, threat to staff... and all critical care pts) @ -yes as the patient had critically low sugar - Lab Data Result diagrams: 03/23/25 09:07 03/23/25 09:07 Lab Results 03/23/25 03/23/25 03/23/25 Range/Units 08:24 09:07 09:07 WBC 7.86 (4.50-10.00) 10*3/uL RBC 4.59 (4.40-5.60) 10*6/uL Hgb 14.2 (13.0-17.0) g/dL Hct 42.4 (39.6-50.0) % MCV 92.4 (80.0-97.0) fL MCH 30.9 (27.0-32.0) pg MCHC 33.5 (32.0-37.0) g/dL Plt Count 205 (140-440) 10*3/uL MPV 10.0 (9.5-12.2) fL Immature Gran % (Auto) 0.5 % Neutrophils % 70.2 % Lymphocytes % 17.4 % Monocytes % 9.8 % Eosinophils % 1.5 % Basophils % 0.6 % Immature Gran # 0.04 (0.00-0.04) 10*3/uL Neutrophils # 5.51 (1.80-7.70) 10*3/uL Lymphocytes # 1.37 (0.90-5.00) 10*3/uL Monocytes # 0.77 (0.20-1.00) 10*3/uL Eosinophils # 0.12 (0.04-0.35) 10*3/uL Basophils # 0.05 (0.00-0.10) 10*3/uL Sodium 141 (137-145) mmol/L Potassium 3.4 L (3.5-5.1) mmol/L Chloride 107 (98-107) mmol/L Carbon Dioxide 26 (22-30) mmol/L Anion Gap 8 mmol/L BUN 19 (9-20) mg/dL Creatinine 1.33 H (0.66-1.25) mg/dL Est GFR (CKD-EPI)AfAm 60 (>60 ml/min/1.73 sqM) Est GFR (CKD-EPI)NonAf 52 (>60 ml/min/1.73 sqM) Glucose 109 H (74-99) mg/dL POC Glucose (mg/dL) 130 H (70-110) mg/dL POC Glu Manual Control [employer] Operator ID Fetterly Devika Plasma Lactic Acid Nino (0.7-2.0) mmol/L Calcium 9.4 (8.4-10.2) mg/dL Total Bilirubin 0.7 (0.2-1.3) mg/dL AST 25 (17-59) U/L ALT 29 (4-49) U/L Alkaline Phosphatase 91 (38-126) U/L Troponin I (0.000-0.034) ng/mL Total Protein 6.5 (6.3-8.2) g/dL Albumin 4.0 (3.5-5.0) g/dL Urine Color Urine Appearance (Clear) Urine pH (5.0-8.0) Ur Specific [place] (1.001-1.035) Urine Protein (Negative) Urine Glucose (UA) (Negative) Urine Ketones (Negative) Urine Blood (Negative) Urine Nitrite (Negative) Urine Bilirubin (Negative) Urine Urobilinogen (<2.0) mg/dL Ur Leukocyte Esterase (Negative) Urine RBC (0-5) /hpf Urine WBC (0-5) /hpf Urine Mucus (None) /hpf 03/23/25 03/23/25 03/23/25 Range/Units 09:07 09:07 10:26 WBC (4.50-10.00) 10*3/uL RBC (4.40-5.60) 10*6/uL Hgb (13.0-17.0) g/dL Hct (39.6-50.0) % MCV (80.0-97.0) fL MCH (27.0-32.0) pg MCHC (32.0-37.0) g/dL Plt Count (140-440) 10*3/uL MPV (9.5-12.2) fL Immature Gran % (Auto) % Neutrophils % % Lymphocytes % % Monocytes % % Eosinophils % % Basophils % % Immature Gran # (0.00-0.04) 10*3/uL Neutrophils # (1.80-7.70) 10*3/uL Lymphocytes # (0.90-5.00) 10*3/uL Monocytes # (0.20-1.00) 10*3/uL Eosinophils # (0.04-0.35) 10*3/uL Basophils # (0.00-0.10) 10*3/uL Sodium (137-145) mmol/L Potassium (3.5-5.1) mmol/L Chloride (98-107) mmol/L Carbon Dioxide (22-30) mmol/L Anion Gap mmol/L BUN (9-20) mg/dL Creatinine (0.66-1.25) mg/dL Est GFR (CKD-EPI)AfAm (>60 ml/min/1.73 sqM) Est GFR (CKD-EPI)NonAf (>60 ml/min/1.73 sqM) Glucose (74-99) mg/dL POC Glucose (mg/dL) (70-110) mg/dL POC Glu Manual Control [employer] Operator ID Plasma Lactic Acid Nino 1.1 (0.7-2.0) mmol/L Calcium (8.4-10.2) mg/dL Total Bilirubin (0.2-1.3) mg/dL AST (17-59) U/L ALT (4-49) U/L Alkaline Phosphatase (38-126) U/L Troponin I <0.012 (0.000-0.034) ng/mL Total Protein (6.3-8.2) g/dL Albumin (3.5-5.0) g/dL Urine Color Light Yellow Urine Appearance Clear (Clear) Urine pH 5.5 (5.0-8.0) Ur Specific [place] 1.025 (1.001-1.035) Urine Protein 2+ H (Negative) Urine Glucose (UA) 4+ H (Negative) Urine Ketones Negative (Negative) Urine Blood Negative (Negative) Urine Nitrite Negative (Negative) Urine Bilirubin Negative (Negative) Urine Urobilinogen <2.0 (<2.0) mg/dL Ur Leukocyte Esterase Negative (Negative) Urine RBC <1 (0-5) /hpf Urine WBC <1 (0-5) /hpf Urine Mucus Rare H (None) /hpf Disposition Clinical Impression: Hypoglycemia Disposition: HOME SELF-CARE Condition: Stable Instructions (If sedation given, give patient instructions): Hypoglycemia in a Person with Diabetes (ED) Additional Instructions: Please decrease your rapid insulin injection by 10 units as it it bottoming out your sugar level. Follow up with your doctor to let them know we made this change. Return for any new or worsening symptoms. Is patient prescribed a controlled substance at d/c from ED?: No Referrals: Roby Zuluaga DO [Primary Care Provider] - 1-2 days Time of Disposition: 11:13
[2025-03-23 13:09] VITALS: BP 123/79; PULSE 68; RESP 16; TEMP 97.8
== END 2025-03-23 11:35 | disposition home or self-care (01) ==
LOC: EC 08:15
DX: E11.649 Type 2 diabetes mellitus with hypoglycemia without coma (principal); Z79.4 Long term (current) use of insulin; Z87.891 Personal history of nicotine dependence; Z88.8 Allergy status to other drugs, medicaments and biological substances
CPT/HCPCS: 36415; 80053; 81001; 83605; 84484; 85025; 93005; 99285